=== PATIENT | male | born 1955 | race Caucasian/White ===

== ENCOUNTER 2018-09-28 16:53 | Emergency (ER) | payer OTHER ==
[2018-09-28] MEDS ORDERED: KETOROLAC 60 MG/2 ML VIAL IM STA (17:20)
--- NOTE | 2018-09-28 17:27 | ED ---
General Adult HPI - General Chief complaint: Fall Stated complaint: Fell/neck,side,back pain Time Seen by Provider: 09/28/18 17:00 Source: patient, RN notes reviewed Mode of arrival: ambulatory Limitations: no limitations - History of Present Illness Initial comments: This is a 63-year-old male who presents emergency Department complaining of neck pain and lower back pain. 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 Patient states she's been 13 days. Patient states he had to help with Outside in the Rain When He Went to Step over a Bench He Fell and Landed on His Butt and Then Fell Back and Hit His Head on the [place]. Patient States He Was Dazed for Just a Second He Got Right up and Was Able to Walk around without Problem. Patient States This Occurred at 10:30 This Morning. Patient States since Then Both Sides of His Neck to Become More Sore and Both Sides of His Lower Back Are Also Sore. Patient Denies Any Area of Bony Tenderness. Patient Denies Any Headache at This Time. Patient Denies Any Loss of Consciousness I Note This Because Nursing Stated He Did Lose Consciousness for a Second but I Asked Him Multiple Times and He Denied Actual Loss of Consciousness. Patient denies any extremity injury. Patient denies any upper back pain. Patient denies any chest pain or any shortness of breath. - Related Data Home Medications Medication Instructions Recorded Confirmed Albuterol Inhaler [Ventolin Hfa 2 puff INHALATION RT-[id number] PRN 10/18/15 09/28/18 Inhaler] Allergies Allergy/AdvReac Type Severity Reaction Status Date / Time Penicillins Allergy Unknown Verified 09/28/18 17:15 Childhood Review of Systems ROS Statement: Those systems with pertinent positive or pertinent negative responses have been documented in the HPI. ROS Other: All systems not noted in ROS Statement are negative. Past Medical History Past Medical History: COPD Additional Past Medical History / Comment(s): lung nodules, hepatitis A and C History of Any Multi-Drug Resistant Organisms: None Reported Past Surgical History: No Surgical Hx Reported Past Psychological History: No Psychological Hx Reported Smoking Status: Current every day smoker Past Alcohol Use History: None Reported Past Drug Use History: Heroin, Marijuana, Prescription Drug Abuse General Exam - General Exam Comments Initial Comments: GENERAL: Patient is well-developed and well-nourished. Patient is nontoxic and well- hydrated and is in mild distress. ENT: Neck is soft and supple. No significant lymphadenopathy is noted. Oropharynx is clear. Moist mucous membranes. Neck has full range of motion without eliciting any pain. Patient has tenderness bilaterally to the trapezius muscle. Patient has no midline tenderness. EYES: The sclera were anicteric and conjunctiva were pink and moist. Extraocular movements were intact and pupils were equal round and reactive to light. Eyelids were unremarkable. PULMONARY: Unlabored respirations. Good breath sounds bilaterally. No audible rales rhonchi or wheezing was noted. CARDIOVASCULAR: There is a regular rate and rhythm without any murmurs gallops or rubs. ABDOMEN: Soft and nontender with normal bowel sounds. No palpable organomegaly was noted. There is no palpable pulsatile mass. SKIN: Skin is clear with no lesions or rashes and otherwise unremarkable. NEUROLOGIC: Patient is alert and oriented x3. Cranial nerves II through XII are grossly intact. Motor and sensory are also intact. Normal speech, volume and content. Symmetrical smile. MUSCULOSKELETAL: Normal extremities with adequate strength and full range of motion. No lower extremity swelling or edema. No calf tenderness. Patient has no midline tenderness of the lower back. Patient has minimal tenderness to the paraspinous muscles bilaterally LYMPHATICS: No significant lymphadenopathy is noted PSYCHIATRIC: Normal psychiatric evaluation. Limitations: no limitations Course Vital Signs 09/28/18 09/28/18 16:56 19:30 Temperature 98.2 F 98.4 F Pulse Rate 76 79 Respiratory 18 19 Rate Blood Pressure 134/84 127/78 O2 Sat by Pulse 99 99 Oximetry Medical Decision Making - Medical Decision Making C-spine x-ray shows no acute normalities. Patient received Toradol in the emergency department felt considerably better. Disposition Clinical Impression: Cervical strain, Lumbar strain Disposition: HOME SELF-CARE Instructions (If sedation given, give patient instructions): Cervical Strain (ED), Low Back Strain (ED) Additional Instructions: Patient's take Motrin 600 mg every 6 hours when necessary for pain Is patient prescribed a controlled substance at d/c from ED?: No Referrals: None,Stated [Primary Care Provider] - 1-2 days Time of Disposition: 18:39
--- NOTE | 2018-09-28 18:38 | XR ---
EXAMINATION TYPE: XR cervical spine trauma DATE OF EXAM: 09/28/2018 COMPARISON: NONE HISTORY: Neck pain TECHNIQUE: 7 views FINDINGS: Vertebra have normal alignment. Atlantoaxial facet joint is normal. There are no cervical r ibs. The neural foramina are fairly well-maintained. Disc spaces are normal. There is no evidence of a fracture. IMPRESSION: Normal cervical spine.
[2018-09-28 20:05] VITALS: BP 127/78; PULSE 79; RESP 19; TEMP 98.4
== END 2018-09-28 19:35 | disposition home or self-care (01) ==
LOC: EC 16:53
DX: S39.012A Strain of muscle, fascia and tendon of lower back, initial encounter (principal); S16.1XXA Strain of muscle, fascia and tendon at neck level, initial encounter; J44.9 Chronic obstructive pulmonary disease, unspecified; F17.200 Nicotine dependence, unspecified, uncomplicated; Z88.0 Allergy status to penicillin; W01.0XXA Fall on same level from slipping, tripping and stumbling without subsequent striking against object, initial encounter; Y93.89 Activity, other specified; Y92.198 Other place in other specified residential institution as the place of occurrence of the external cause
CPT/HCPCS: 72050; 99283; 96372; J1885

== ENCOUNTER → 2020-12-10 | Outpatient (CLI) | payer OTHER ==
[2020-12-11 00:50] LABS: African American GFR (CKD) 92.4 (60.0-200.0); Albumin 4.4 g/dL (3.80-4.90); Albumin/Globulin Ratio 2.1 (1.60-3.17); Anion Gap 8.1 mmol/L (4.00-12.00); Carbon Dioxide 23.9 mmol/L (21.6-31.8); Globulin 2.1 g/dL (1.6-3.3); Non-African American GFR(CKD) 79.7 (60.0-200.0); Potassium 4.6 mmol/L (3.5-5.5); Total Bilirubin 0.3 mg/dL (0.3-1.2); Total Protein 6.5 g/dL (6.2-8.2)
== END | disposition home or self-care (01) ==
LOC: LABWHC1 15:36
PROVIDERS: ATTEND Family Medicine
DX: F11.20 Opioid dependence, uncomplicated (principal)
CPT/HCPCS: 36415; 80053

== ENCOUNTER → 2021-02-09 | Outpatient (CLI) | payer OTHER ==
[2021-02-09 22:35] LABS: African American GFR (CKD) 110.2 (60.0-200.0); Albumin 4.3 g/dL (3.80-4.90); Albumin/Globulin Ratio 2.15 (1.60-3.17); Anion Gap 7.8 mmol/L (4.00-12.00); Calcium 9.1 mg/dL (8.7-10.3); Carbon Dioxide 22.2 mmol/L (21.6-31.8); Non-African American GFR(CKD) 95.1 (60.0-200.0); Potassium 4.4 mmol/L (3.5-5.5); Total Bilirubin 0.3 mg/dL (0.2-1.2); Total Protein 6.3 g/dL (6.2-8.2)
== END | disposition home or self-care (01) ==
LOC: LABWHC1 13:51
PROVIDERS: ATTEND General Practice
DX: Z79.891 Long term (current) use of opiate analgesic (principal)
CPT/HCPCS: 36415; 80053